=== PATIENT | female | born 1995 | race Caucasian/White ===

== ENCOUNTER 2019-02-03 09:07 | Emergency (ER) | payer OTHER, MEDICAID ==
[2019-02-03 12:13] LABS: ADD MAN DIFF? NO
[2019-02-03 12:22] LABS: WHITE BLOOD COUNT 6.5 10^3/ul (4.8-10.8)
[2019-02-03 12:22] LABS: BASOPHILS % 0.6 % (0.0-2.0); EOSINOPHILS # 0.1 10^3/ul (0.0-0.5); EOSINOPHILS % 1.2 % (0.0-7.0); HEMATOCRIT 42.3 % (37.0-47.0); HEMOGLOBIN 13.9 g/dl (12.0-16.0); LYMPHOCYTES # 2.2 10^3/ul (0.8-2.9); LYMPHOCYTES % 34.1 % (15.0-51.0); MEAN CORPUSCULAR HGB CONC 32.9 g/dl (32.0-37.0); MEAN CORPUSCULAR VOLUME 91.4 fl (82.0-101.0); MEAN PLATELET VOLUME 10.8 fl (7.4-10.4); MONOCYTE # 0.5 10^3/ul (0.3-0.9); MONOCYTES % 7.6 % (0.0-11.0); NEUTROPHIL # 3.6 10^3/ul (1.6-7.5); PLATELET COUNT 281 10^3/UL (140-415); RED BLOOD COUNT 4.63 10^6/ul (4.20-5.40); RED CELL DISTRIBUTION WIDTH 12.6 % (11.5-14.5)
[2019-02-03] MEDS: KETOROLAC 15 MG INJ IV (12:29)
[2019-02-03] MEDS: SOD CHLORIDE 0.9% 500 ML IV (12:29)
[2019-02-03 12:43] LABS: ANION GAP 10 (5-13); BLOOD UREA NITROGEN 13 mg/dl (7-20); CALCIUM 10.2 mg/dl (8.4-10.2); CARBON DIOXIDE 27 mmol/L (21-31); CHLORIDE 104 mmol/L (97-110); CREATININE 0.51 mg/dl (0.44-1.00); Estimated GFR > 60 mL/min (>60); GLUCOSE 95 mg/dl (70-220); POTASSIUM 4.6 mmol/L (3.5-5.1); SODIUM 141 mmol/L (135-144)
[2019-02-03 12:54] LABS: TROPONIN-I < 0.012 ng/ml (0.000-0.120)
== END 2019-02-03 14:01 | disposition home or self-care (01) ==
LOC: E/R 09:07
DX: R07.89 Other chest pain (principal)
CPT/HCPCS: 36415; 80048; 81025; 84484; 85025; 93005; 96374; 99284-25

== ENCOUNTER 2019-02-08 06:14 | Emergency (ER) | payer OTHER ==
[2019-02-08] MEDS: IBUPROFEN 600 MG TAB PO (07:01)
[2019-02-08 07:04] LABS: URINE BLOOD (Dip) POC Negative (NEGATIVE); URINE GLUCOSE (Dip) POC Negative (NEGATIVE); URINE KETONES (Dip) POC Negative (NEGATIVE); URINE LEUKOCYTE EST (Dip) POC Negative (NEGATIVE); URINE NITRITE (Dip) POC Negative (NEGATIVE); URINE TOTAL PROTEIN POC Negative (NEGATIVE)
[2019-02-08 07:04] LABS: URINE PH (Dip) POC 5.5 (5.0-8.5)
== END 2019-02-08 08:07 | disposition home or self-care (01) ==
LOC: FTE 06:14
DX: R07.89 Other chest pain (principal); R10.2 Pelvic and perineal pain; M54.6 Pain in thoracic spine
CPT/HCPCS: 71045; 81003; 81025; 93005; 99284-25